=== PATIENT | male | born 1965 | race Caucasian/White ===

== ENCOUNTER 2024-04-29 08:27 | Emergency (ER) | payer BC, SELFPAY ==
[2024-04-29 08:29] VITALS: BP 157/92
[2024-04-29 08:38] VITALS: BP 155/90
--- NOTE | 2024-04-29 08:57 | ED.GENMED ---
History of Present Illness
<Abdelrahman Medellin DO, Resident - Last Filed: 04/29/24 11:02>
General
Chief Complaint: Heart Rate Problem
Source: patient and family
Time Seen by Provider: 04/29/24 08:37
History of Present Illness
History of Present Illness:
58-year-old male past medical history of psoriasis, hypertension, hyperlipidemia presents for elevated heart rate and blood pressure at home. Patient reports home pressures are 166/106 with associated palpitations. Patient reports he felt these
were regular, there is no inciting event. He takes lisinopril and a statin reports lisinopril recently increased, also takes another blood pressure med beginning with E. Patient reports he has not missed any doses of his medications. Of note,
unfortunately, his was recently diagnosed with stage IV colorectal cancer, she is receiving treatment at [facility] and starting chemotherapy soon. Patient subjectively reports feelings of anxiety and 'panic attacks 'regarding the future of his
's treatment and her condition. In emergency department EKG demonstrated sinus tachycardia with possible LVH, no ischemic changes. Patient reports he does not follow a property appraiser. Patient reports no chest pain, no shortness of breath, no
abdominal pain, no fevers, reports eating and drinking well.
Past History
<Abdelrahman Medellin DO, Resident - Last Filed: 04/29/24 11:02>
Past History
ED Past Medical History: HTN, Hypercholesterolemia and Other (Psoriasis)
ED Past Surgical History: Other (Hernia repair x 3)
Social History
Tobacco: Non-smoker
Alcohol: Occasional
Drug: None
Personal:
Living: with family
Employment: Employed
Family History
Family History: CAD
Review of Systems
<Abdelrahman Medellin DO, Resident - Last Filed: 04/29/24 11:02>
Review of Systems
Constitutional: Reports no symptoms; Denies fever, fatigue or chills
Respiratory: Reports no symptoms
Cardiac: Reports palpitations; Denies chest pain or syncope
ABD/GI: Reports no symptoms
Musculoskeletal: Reports no symptoms
Neurological: Reports no symptoms
Phy Exam
<Abdelrahman Medellin DO, Resident - Last Filed: 04/29/24 11:02>
General Physical Exam
General Presentation: well appearing
General Skin: warm and dry
General Mental: anxious
Cardiovascular Exam
Cardiovascular Exam: regular rate/rhythm, no edema, no murmur, tachycardia and other (Tachycardic, heart sounds regular. Loud.)
Heart Sounds: other (Loud)
Pulmonary Exam
Pulmonary Exam: lungs clear, no respiratory distress, no crackles and no wheezing
Gastrointestinal Exam
Gastrointestinal Exam: non tender, soft and non distended
Skin Exam
Skin Exam: other (Psoriasis lesions present throughout body)
Psychiatric Exam
Psychiatric Exam: anxious
Course
<Abdelrahman Medellin DO, Resident - Last Filed: 04/29/24 11:02>
Orders/Labs/Results
Orders:
Orders
04/29/24 08:28
Electrocardiogram (*1) Urgent
Reason for Study: Tachycardia
EKG- Treatment ONCE
04/29/24 09:10
Lorazepam [Ativan] 1 mg PO NOW STA
Metoprolol Xl [Toprol Xl] 25 mg PO NOW STA
04/29/24 09:15
Basic Metabolic Panel Urgent
Complete Blood Count/No Diff Urgent
Magnesium Urgent
TSH Reflex To Free T4 Stat
04/29/24 09:36
Troponin I Urgent
Abnormal Lab Results
04/29/24
09:15
Sodium 134 L mmol/L
(135-145)
Chloride 97 L mmol/L
(98-107)
Glucose 118 H mg/dl
(70-99)
04/29/24 09:15
04/29/24 09:15
Vital Signs
Initial and Last Documented VS:
Initial Vital Signs
Temp Pulse Resp BP Pulse Ox
98.1 F 106 18 157/92 97
04/29/24 08:29 04/29/24 08:29 04/29/24 08:29 04/29/24 08:29 04/29/24 08:29
Last Documented Vital Signs
Temp Pulse Resp BP Pulse Ox
98.1 F 99 19 153/93 95
04/29/24 08:29 04/29/24 10:00 04/29/24 10:00 04/29/24 10:00 04/29/24 09:15
<Obey Contreras, DO - Last Filed: 04/29/24 09:27>
Orders/Labs/Results
Orders:
Orders
04/29/24 08:28
Electrocardiogram (*1) Urgent
Reason for Study: Tachycardia
EKG- Treatment ONCE
04/29/24 09:10
Lorazepam [Ativan] 1 mg PO NOW STA
Metoprolol Xl [Toprol Xl] 25 mg PO NOW STA
04/29/24 09:15
Basic Metabolic Panel Urgent
Complete Blood Count/No Diff Urgent
Magnesium Urgent
TSH Reflex To Free T4 Stat
04/29/24 09:36
Troponin I Urgent
Abnormal Lab Results
04/29/24
09:15
Sodium 134 L mmol/L
(135-145)
Chloride 97 L mmol/L
(98-107)
Glucose 118 H mg/dl
(70-99)
04/29/24 09:15
04/29/24 09:15
Vital Signs
Initial and Last Documented VS:
Initial Vital Signs
Temp Pulse Resp BP Pulse Ox
98.1 F 106 18 157/92 97
04/29/24 08:29 04/29/24 08:29 04/29/24 08:29 04/29/24 08:29 04/29/24 08:29
Last Documented Vital Signs
Temp Pulse Resp BP Pulse Ox
98.1 F 99 19 153/93 95
04/29/24 08:29 04/29/24 10:00 04/29/24 10:00 04/29/24 10:00 04/29/24 09:15
<Abdelrahman Medellin DO, Resident - Last Filed: 04/29/24 11:02>
MDM/Problems Addressed
Differential Diagnosis Includes:
Anxiety, acute panic attack, panic disorder, tachycardia,
MDM/Problems Addressed:
58-year-old male past medical history of hypertension, hyperlipidemia presents for elevated heart rate and elevated blood pressure
Patient reports taking lisinopril statin and another medication he is unsure beginning with E, his lisinopril was recently increased by his PCP. Patient reports never missing any doses of medications
Unfortunately, patient's was recently diagnosed with stage IV colorectal cancer and is starting chemotherapy at [facility]. Patient reports feelings of anxiety and 'panic attacks ' regarding this diagnosis in the future for treatment. Patient
has never been formally diagnosed with panic disorder
In ED, patient tachycardic, regular with elevated blood pressure. Afebrile, satting well on room air
Heart loud on exam, regular, tachycardic. Abdomen benign, lungs clear to auscultation
EKG in emergency department demonstrated sinus tachycardia with possible LVH, no ischemic changes,
Will check troponins
Likely his symptoms are secondary to panic attack/anxiety. Patient reports he does not have a property appraiser and has never seen one previously
Will give one-time dose Ativan by mouth as well as one-time metoprolol succinate
Will check CBC, CMP, TSH, magnesium
CBC within normal limits, magnesium within normal limits, chemistry demonstrates slight hyponatremia 134, TSH within normal limits, Troponins negative
On reexamination, patient reports interval decrease in anxiety and palpitations with Ativan and metoprolol
Will prescribe patient 14-day course of metoprolol succinate to be taken daily. Encourage follow-up with his primary care provider for definitive management of anxiety
<Abdelrahman Medellin DO, Resident - Last Filed: 04/29/24 11:02>
*Critical Care Note
Total Time (30-74mins, 75-104mins- exclusive of procedures): Not Applicable
ED Attending Note
<Abdelrahman Medellin DO, Resident - Last Filed: 04/29/24 11:02>
-
Portions of this chart may have been created with voice recognition software.� Occasional wrong word or��sound alike� substitutions may have occurred due to the inherent limitations of voice recognition software.
<Obey Contreras DO - Last Filed: 04/29/24 09:27>
ED Attending Note
Patient seen and examined by attending physician: Yes
ED Attending Note:
Seen with resident examined independently 58-year-old male hypertension on lisinopril presents with palpitations here he is tearful, recently diagnosed with stage IV cancer, scheduled for chemo starting tomorrow, admits to some anxiety, he was
worried he was having a heart attack, though he had no chest pain or shortness of breath,
Discharge Plan
Departure
Patient Disposition: Home (Routine Discharge)
Date of Disposition: 04/29/24
Time of Disposition: 10:38
Patient with high blood pressure during this ER visit?: Yes
Condition: Fair
Discharge Problem:
Anxiety disorder with panic attacks
Instructions: Generalized anxiety disorder, Panic Disorder (DC), BLOOD PRESSURE
Prescriptions:
New
metoprolol succinate 25 mg tablet extended release 24 hr
25 mg PO DAILY Qty: 14 0RF
Referrals:
Ibrahima Mejia MD [Family Provider] - Call in 1-3 days for appt
Activity Restrictions/Additional Instructions:
Please follow-up with your primary care provider in 1 to 3 days, call for an appointment
Please take metoprolol succinate by mouth once a day, continue medication until seen by primary care provider
Please return if your symptoms worsen, you develop severe shortness of breath, faint or with any concerns
Interventions
Interventions:
*Risk Screen - Suicide Last Done: 04/29/24 08:29
*General Assessment Last Done: 04/29/24 08:29
*Neglect/Abuse Screening Last Done: 04/29/24 08:29
*ED COVID-19 Vaccine History Last Done: 04/29/24 10:00
*Nursing Disposition Last Done: 04/29/24 11:01
ED- Cardiac Assessment Last Done: 04/29/24 09:00
ED- Neurological Assessment Last Done: 04/29/24 09:00
ED- Pulmonary Assessment Last Done: 04/29/24 09:00
Discharge Date and Time
Print Language: LITHUANIAN
[2024-04-29 09:00] VITALS: BP 142/92
[2024-04-29] MEDS: TOPROL XL 25 MG PO (09:22)
[2024-04-29] MEDS: ATIVAN 1 MG PO (09:22)
[2024-04-29 09:27] LABS: Hematocrit 45.8 % (39.0-52.0); Hemoglobin 15.6 g/dL (13.0-18.0); Mean Corp Hgb Conc. 34.1 g/dL (33.0-37.0); Mean Corpuscular Hgb 30.9 pg (27.0-31.0); Mean Corpuscular Volume 90.7 fL (80.0-94.0); Mean Platelet Volume 9.6 fL (7.4-10.4); Platelet Count 326 10^3/uL (130-400); Red Blood Cell Count 5.05 10^6/uL (4.70-6.10); Red Cell Dist. Width 12.5 % (11.5-14.5); White Blood Cell Count 8.8 10^3/uL (4.8-10.8)
[2024-04-29 09:39] LABS: Blood Urea Nitrogen 10 mg/dl (9-20); Calcium 10.1 mg/dl (8.4-10.2); Carbon Dioxide 25 mmol/L (22-30); Chloride 97 mmol/L (98-107); Glucose 118 mg/dl (70-99); Magnesium 1.8 mg/dl (1.6-2.3); Sodium 134 mmol/L (135-145); eGFR > 60.00
[2024-04-29 09:45] LABS: Potassium 4.3 mmol/L (3.5-5.1)
[2024-04-29 10:00] VITALS: BP 153/93
[2024-04-29 10:10] LABS: Troponin I < 0.012 ng/ml
[2024-04-29 10:14] LABS: TSH Reflex To Free T4 1.36 uIU/ml (0.47-4.68)
== END 2024-04-29 11:02 | disposition home or self-care (01) ==
LOC: EMR 08:27
PROVIDERS: EMERGENCY PHYSICIAN Emergency Medicine; FAMILY PHYSICIAN Family Medicine
DX: F41.0 Panic disorder [episodic paroxysmal anxiety] (principal); I10 Essential (primary) hypertension; E78.00 Pure hypercholesterolemia, unspecified
CPT/HCPCS: 99284; 80048; 83735; 84443; 84484; 85027; 93005

== ENCOUNTER → 2024-11-27 15:18 | Outpatient (REF) | payer OTHER, SELFPAY | LOC: HWRAD 15:18 | PROVIDERS: ATTENDING PHYSICIAN Family Medicine | DX: R74.8 Abnormal levels of other serum enzymes (principal) | CPT/HCPCS: 76700 ==